=== PATIENT | male | born 1990 ===

== ENCOUNTER 2021-07-18 21:37 | Emergency (ER) | payer MEDICAID, SELFPAY ==
[2021-07-18 22:34] VITALS: BP 136/78; PULSE 73; RESP 18; TEMP 36.5; O2SAT 99
[2021-07-18 22:38] VITALS: RESP 18
--- NOTE | 2021-07-18 22:50 | W.ED.GENAD ---
Discharge Plan Disposition Patient Disposition: HOME Condition: Improving Discharge Details Clinical Impression: Tick bite Primary Care Provider: Vidya,[facility] ED Provider: Sam Hobbs Discharge Instructions Instructions: Tick Bite (ED) Additional Instructions: Continue to monitor for signs and symptoms of tickborne illness such as fever chills, swollen joints, abnormal rash, flulike symptoms. If these occur please follow-up with primary care provider or return to emergency department for reassessment. Otherwise you have been given a single dose of antibiotics which typically reduces majority of cases from developing tickborne illness. Discharge Data Discharge Date/Time-TO BE ENTERED AT DEPARTURE: 07/18/21 23:03 Medical Decision Making Physical exam shows deer tick embedded into right thigh. Patient states potentially greater than 36 hours of attachment. Patient denies any other symptoms. Tick was removed and patient given single dose of doxycycline. Monitoring of symptoms along with return and follow-up precautions were discussed. After discussion of diagnosis and plan of care patient has no further needs, questions, or concerns and states clear understanding to return to the emergency department for any worsening symptoms. HPI General Mode of arrival: ambulatory. Date/Time Provider Initiated Documentation: 07/18/21 21:47. Limitations to Documentation: no limitations. Information obtained by: patient. History of Present Illness 30 year old M presents to the emergency department with the chief complaint of tick bite right thigh, Quality is described as other (denies pain), Patient started experiencing this day(s) (2?) and it has been constant. improves with No relieving factors improve symptom(s), No exacerbating factors reported . Patient notes no other symptoms.. Patient did receive the following treatments prior to arrival, none Related Data Allergies Allergy/AdvReac Type Severity Reaction Status Date / Time No Known Allergies Allergy Unverified 07/18/21 22:40 General Stated Complaint: GenMedical JODIE: 4 Review of Systems Constitutional Constitutional: Denies body ache(s), Denies fever(s) and Denies headache(s) ENT Ears, Nose, Mouth, and Throat: Denies headache(s) Musculoskeletal Musculoskeletal: Denies myalgias, Denies arthralgias and Denies joint swelling Integumentary/Breasts Skin/Breast: Reports as per HPI, Denies erythema and Denies rash Neurologic Neurologic: Denies headache(s) and Denies paresthesias PFSH All Active Problems Tick bite (Acute) Social History Smoking/Tobacco Use Status: Former Tobacco Use Smoking risk assessment performed?: Yes Drug use: Never Do you feel safe at home: Yes Do you feel safe in your relationship?: Yes Exam Const General: cooperative, comfortable and no acute distress Orientation: alert, awake and oriented x3 Resp Effort & Inspection: normal respiratory effort and able to speak in complete sentences Skin General skin exam: erythema (Circular area with tick present in right thigh ), no fluctuance, no induration and other Rashes: no rashes Neuro General: patient alert, patient awake and patient oriented x3 Course Vital Signs Vital signs: Vital Signs Temperature 36.5 C 07/18/21 22:34 Pulse 73 07/18/21 22:34 Respiratory Rate 18 07/18/21 22:34 Blood Pressure 136/78 07/18/21 22:34 Pulse Oximetry 99 07/18/21 22:34 Temperature 36.5 C 07/18/21 22:34 Temperature Source Skin 07/18/21 22:34 Pulse 73 07/18/21 22:34 Respiratory Rate 18 07/18/21 22:38 Respiratory Effort 07/18/21 22:38 Respiratory Depth Normal 07/18/21 22:38 Respiratory Pattern Normal 07/18/21 22:38 Blood Pressure 136/78 07/18/21 22:34 Blood Pressure Position Sitting 07/18/21 22:34 Pulse Oximetry 99 07/18/21 22:34 Oxygen Delivery Method Room Air 07/18/21 22:34 Oxygen Flow Rate 0 07/18/21 22:34 Pain Level 0 07/18/21 22:34
[2021-07-18] MEDS: Doxycycline Hyclate 100 MG CAP 200 MG PO (23:00)
== END 2021-07-18 23:03 | disposition home or self-care (01) ==
PROVIDERS: Emergency Provider Nurse Practitioner Family
DX: S70.361A Insect bite (nonvenomous), right thigh, initial encounter (principal); W57.XXXA Bitten or stung by nonvenomous insect and other nonvenomous arthropods, initial encounter
CPT/HCPCS: 99283

== ENCOUNTER 2025-01-28 09:16 | Outpatient (REF) | payer MEDICAID, SELFPAY ==
[2025-01-28 16:06] LABS: Calculated LDL 251 mg/dL (<100); Cholesterol 314 mg/dL (<200); HDL Cholesterol 51 mg/dL (>or=40); Triglyceride 62 mg/dL (<150)
== END 2025-01-28 09:17 | disposition home or self-care (01) ==
LOC: NCHCN 09:16
PROVIDERS: Visit Provider Family Medicine
DX: Z00.00 Encounter for general adult medical examination without abnormal findings (principal)
CPT/HCPCS: 80061